=== PATIENT | male | born 1995 | race Caucasian/White ===

== ENCOUNTER 2024-06-14 23:48 | Emergency (ER) | payer OTHER ==
[~2024-06-14] VITALS: Ht 175.3 cm; Wt 221.3 kg
[2024-06-15] MEDS ORDERED: tetanus & diphtheria toxoid (Td) vaccine 0.5ml IMVAC ONE (01:40)
[2024-06-15] MEDS: TETanus/Pertussis (Acell)/Diphther VAC/PF (Tdap-Adult) 0.5ml syringe IMVAC ONE (01:44)
[2024-06-15 01:49] VITALS: BP 141/84; PULSE 88; RESP 18; TEMP 98.3; O2SAT 98
== END 2024-06-15 02:01 | disposition home or self-care (01) ==
LOC: ER 23:49
DX: S60.221A Contusion of right hand, initial encounter (principal); S40.012A Contusion of left shoulder, initial encounter; F12.90 Cannabis use, unspecified, uncomplicated; V29.888A Rider (driver) (passenger) of other motorcycle injured in other specified transport accidents, initial encounter; Y93.89 Activity, other specified; Y92.89 Other specified places as the place of occurrence of the external cause; Y99.8 Other external cause status
CPT/HCPCS: 71046; 73030; 73130; 90471; 90715; 99285

== ENCOUNTER 2024-11-09 17:33 | Emergency (ER) | payer OTHER ==
[~2024-11-09] VITALS: Ht 175.3 cm; Wt 95.5 kg
[2024-11-09] MEDS: LIDOcaine 1% 30ml preserv. free vial IJ STA (18:28)
[2024-11-09 19:28] VITALS: BP 124/76; PULSE 70; RESP 16; TEMP 98.5; O2SAT 98
== END 2024-11-09 19:29 | disposition home or self-care (01) ==
LOC: ER 17:33
DX: S62.636A Displaced fracture of distal phalanx of right little finger, initial encounter for closed fracture (principal); F12.90 Cannabis use, unspecified, uncomplicated; W20.8XXA Other cause of strike by thrown, projected or falling object, initial encounter; Y93.89 Activity, other specified; Y92.89 Other specified places as the place of occurrence of the external cause; Y99.8 Other external cause status
CPT/HCPCS: 26755; 73140; 99284

== ENCOUNTER 2025-04-18 07:42 | Emergency (ER) | payer OTHER ==
[~2025-04-18] VITALS: Ht 172.7 cm; Wt 78.5 kg
[2025-04-18 07:48] VITALS: TEMP 98.4
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
[2025-04-18 09:10] VITALS: BP 122/81; PULSE 77; RESP 15; O2SAT 99
--- NOTE | 2025-04-18 09:11 | RADIOLOGY REPORT ---
PROCEDURE: Left elbow radiographs. INDICATION: left elbow pain TECHNIQUE: 3 views of the left elbow were obtained. COMPARISON: None FINDINGS: There is no evidence of fracture or dislocation. Joint spaces are maintained. The soft tis sues are unremarkable. IMPRESSION: 1. No fracture or dislocation.
== END 2025-04-18 09:09 | disposition home or self-care (01) ==
LOC: ER 07:44
DX: S50.02XA Contusion of left elbow, initial encounter (principal); S09.90XA Unspecified injury of head, initial encounter; V29.99XA Rider (driver) (passenger) of other motorcycle injured in unspecified traffic accident, initial encounter; Y93.89 Activity, other specified; Y92.89 Other specified places as the place of occurrence of the external cause; Y99.8 Other external cause status
CPT/HCPCS: 73080; 99283; A6258; A6449